=== PATIENT | male | born 1975 | race Caucasian/White ===

== ENCOUNTER 2016-08-04 09:48 | Emergency (ER) | payer MEDICAID ==
[~2016-08-04] VITALS: Ht 188 cm; Wt 122.9 kg
[~2016-08-04 09:48] MED LIST: AMLO5TAB PO; AMLODIPINE BES10 MG PO; ATENOLOL50 MG PO; BYETTA250 MCG/ML SC; CLONIDINE HCL0.1 M1 PO; CLONIDINE0.1 M1 PO; GABAPENTIN300 M1 PO; GEMFIBROZIL600 M1 PO; GLIPIZIDE 5MG TA5 MG PO; HYDROCODONE-APA1 TA1 PO; INDOCIN25 MG PO; LISINOPRIL20 MG PO; NORCO 325 MG-101 TAB PO; ONGLYZA5 MG PO; PERCOCET 5/3251 EACH PO; PHENERGAN25 M3 PO; ROBAXIN-750750 MG PO; TYLENOL W/CODEI1 TA2 PO
[2016-08-04] MEDS ORDERED: AMLO5TAB PO (10:06)
[2016-08-04] MEDS ORDERED: CATAPRES0.2 MG PO (10:06)
--- NOTE | 2016-08-04 10:13 | Emergency Room Report ---
History of Present Illness Time Seen by MD [place] Presenting Problem in Triage Pt arrived:Walked Presenting Problem:C/O PAIN IN L SIDED RIB PAIN THAT IS SHARP IN NATURE. PT STATES PAIN BEGAN LAST NIGHT AFTER SNEEZING. 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 N Clinical Suspician of Infection? N Mental Status: 1 - Regular (Normal Baseline) Sepsis Risk:Low Sepsis Risk Have you (or family members/close friends) recently traveled outside the [place]? N If Yes, where/when: Have you had exposure to infectious disease within the past month? N TB? Other? Specify: Positional left sided muscular pain after sneezing last night; no further sneezing; no congestion or cough; no SOB; pain with movement; no neurological sx. ALLERGIES Coded Allergies: No Known Allergies (11/23/15) Home Medications Reported Medications Glipizide (Glipizide 5MG) 5 MG PO DAILY Amlodipine Besylate (Amlodipine) 5 MG PO DAILY #30 CLONIDINE HYDROCHLORIDE (Catapres 0.2MG) 0.2 MG PO DAILY #30 Lisinopril 40 MG PO DAILY SAXAGLIPTIN HCL (Onglyza) 10 MG PO DAILY Gemfibrozil 600 MG PO TID History Medical History General CAD? No Angina: No SC: No Hypertension? Yes Hyperlipidemia? No CHF? No DVT? No PE? No COPD? No Asthma? Yes Anemia? No GERD? No Gastric ulcers? No GI Bleed? No Hernia? No Thyroid Problems? No Hypothyroidism? No CVA? No Seizures? No Diabetes? Yes Insulin Dependent: No Insulin Pump: No Home FSBS? Yes Renal Insuffiency? No End Stage Renal Disease? No UTI? No Stones? No BPH? No GB Disease: No Nephritic Syndrome? No Asplenia? No Hepatitis? No Sickle Cell Disease? No Arthritis? No Migraines? No Cataracts? No Glaucoma? No MRSA? No HIV? No TB? No Anxiety? No Depression? No Cancer? No More? Yes Additional hx: POLYCYSTIC KIDNEY DISEASE Immunization Hx DT/Tetanus > 10 Years Ago Surgical Hx Previous Surgery?Y L4/L5 DISCECTOMY CHIN APPY HERNIA REPAIR Cholecystectomy Social History Smoking Hx Smoker: Never Smoker Tobacco: No Alcohol Alcohol: No Review of Systems All Other Systems Reviewed and Negative Genitourinary denies: no symptoms reported. Musculoskeletal see HPI Physical Exam Vital Signs Vital Signs Date Time Temp Pulse Resp B/P Pulse O2 O2 Flow FiO2 Ox Delivery Rate 08/04 1106 72 20 157/108 98 08/04 1105 20 08/04 0952 97.9 84 18 157/110 95 General Appearance normal appearance, WD/WN, no apparent distress Eye Exam - bilateral eye normal exam, bilateral eye PERRL Neck normal inspection, non-tender, supple, full range of motion Respiratory Status Yes: trachea midline, chest symmetrical, tender on palpation. No: respiratory distress, non tender chest, use of accessory muscles, pain on inspiration, pain on expiration, productive cough, non productive cough (L pectoralis trigger point). Lung Sounds bilateral: normal breath sounds, lungs clear. Cardiovascular normal exam, regular rate/rhythm, no peripheral edema, no gallop, no JVD, no murmur, no rub, normal peripheral pulses Gastrointestinal normal bowel sounds, normal exam, non tender, firm, soft, no organomegaly, no pulsatile mass, no guarding, no rebound Back normal inspection, no CVA tenderness, no vertebral tenderness Extremities non-tender, normal range of motion, normal inspection, normal capillary refill, no calf tenderness Neurologic alert, normal exam, no motor/sensory deficits Skin intact, normal color, no rash cons.w/shingles Medical Decision Making LABS/Meds/Orders Pt receiving controlled substance in ED? Yes [place] was queried for this patient? Yes ([id number]) Risks/benefits of using a controlled substance for treatment were discussed w/pt by me Results/Orders Current Medication Orders Sig/Joe Start time Last Medication Dose Route Stop Time Status Admin Acetaminophen/ 1 TAB ONCE ONE 08/04 1100 DC 08/04 Hydrocodone Bitart PO 08/04 1101 1105 Ondansetron HCl 4 MG ONCE ONE 08/04 1100 DC 08/04 PO 08/04 1101 1104 Ondansetron HCl 0 .STK-MED ONE 08/04 1100 DC .ROUTE Acetaminophen/ 0 .STK-MED ONE 08/04 1058 DC Hydrocodone Bitart PO Orders Procedure Date/time Status [id number] VIEWS 08/04 1009 Active XRAY/CT/US XRAY/CT/US XRAY chest, rib XR interpretation by reviewed by me, discussed w/radiologist Xray Results normal/NAD, no fracture seen, no infiltrates, normal lung inflation levon (no PTX d/w Dr. Sousa) Departure Departure Time of Disposition 1104 Disposition DC Home or Self Care(routine) Clinical Impression Primary Impression: Muscle strain of chest wall Qualifiers: Encounter type: initial encounter Qualified Code: S29.011A - Strain of muscle and tendon of front wall of thorax, initial encounter Condition STABLE Referrals Alcides LOPEZ,Da Nixon Patient Instructions DI for Musculoskeletal Pain Additional Instructions See Manjula in two to three days for recheck, Rx Lortab and Zofran Discharge Counseling Counseled pt/family regarding diagnosis, test results, medications/RX, home care, follow up needs Prescriptions Current Visit Scripts Ondansetron (Zofran 4MG Odt) 4 MG PO Q6HP PRN NAUSEA AND VOMITING #6 ODT HYDROCODONE/ACETAMINOPHEN (Lortab 5-325 MG Tablet) 1 TAB PO Q6HP PRN pain #20 TAB ED Critical Care Critical Care No at 1108
[2016-08-04] MEDS ORDERED: ZOFRAN ODT4 MG PO (11:07)
[2016-08-04] MEDS ORDERED: LORTAB 5/3251 TAB PO (11:07)
--- NOTE | 2016-08-04 11:13 | RADIOLOGY REPORT PS360 ---
[id number] VIEWS HISTORY: Sneezing with pain in the left rib area PAIN IN L RIB AREA COMPARISON: None FINDINGS: A frontal view of the chest shows no acute finding. No evidence of pneumothorax. A 7 mm nodular opacity overlies the right lower lobe and may be related to nipple shadow or nodule. Multiple views of the Left ribs were obtained. No fracture or dislocation. No lytic or blastic change. IMPRESSION: Negative left RIBS. If pain persists, consider follow-up exam in 7-[address] with 3-D reformats. Right lower lobe nodule versus nipple shadow
[2016-08-04 11:15] VITALS: BP 157/108
== END 2016-08-04 11:15 | disposition home or self-care (01) ==
LOC: ER 09:48
DX: S29.011A Strain of muscle and tendon of front wall of thorax, initial encounter (principal); I10 Essential (primary) hypertension; E11.9 Type 2 diabetes mellitus without complications

== ENCOUNTER → 2016-10-30 | Outpatient (CLI) | payer MEDICAID ==
[~2016-10-30] MED LIST changes: +CATAPRES0.2 MG PO; +LORTAB 5/3251 TAB PO; +ZOFRAN ODT4 MG PO
[2016-10-30 16:52] LABS: BUN 28 mg/dL (7-18)
[2016-10-30 16:53] LABS: GFR (ESTIMATED) 29 ML/MIN (>60)
== END ==
LOC: LAB 14:06
PROVIDERS: Surgery
DX: R10.9 Unspecified abdominal pain (principal)

== ENCOUNTER 2017-03-24 17:03 | Emergency (ER) | payer MEDICAID ==
[~2017-03-24] VITALS: Ht 188 cm; Wt 112.9 kg
[~2017-03-24 17:03] MED LIST changes: +GABAPENTIN 600600 MG PO; +HUMALOG MIX 75/10 ML SC; +HUMALOG MIX75/253 ML; +METOPROLOL25 MG PO; +ZANTAC 150150 MG PO; +ZOCOR10 MG PO; +ZOFRAN4 MG PO
--- NOTE | 2017-03-24 17:33 | Urgent Treatment Center Report ---
History of Present Issue Date/Time Seen by Provider 03/24/17 1726 Visit Reason Pt arrived:Walked Presenting Problem:PT STATES HE WAS SEEN AT [facility] ON WEDNESDAY AND WAS DIAGNOSED WITH BRONCHITIS. STATES NO IMPROVEMENT SINCE THEN Location if Accident: Onset of symptoms date/time:/ or onset unknown for:MEDICAL HX UNKNOWN Have you (or family members/close friends) recently traveled outside the [place]? N If Yes, where/when: Have you had exposure to infectious disease within the past month? TB? Other? Specify: c/o sore throat. Initially started nearly one week ago but much worse today. Son w/ strep. Symptoms started 6 days ago w/ scratchy throat, mild cough, runny nose , aches, chills. Started OTC allergy medication. Symptoms worsened. Cough and SOA w/ intermittent wheezing. Was seen at clinic Wednesday, 2 days ago. Dx bronchitis. Started azithromycin, albuterol inhaler and tessalon perles. Chest symptoms no worse but woke up this morning w/ "terrible sore throat and slightly worse aches". Other than prescribed treatment from Wednesday and typical daily medications, hasn't taken or tried anything else for symptoms. Hx of HTN. and pt report 180's/120's as "typical". Currently taking clonidine and metoprolol. Denies any current attempts by PCP to get BP under better control. "It is too hard to get in there between their schedule and our work schedule". Denies chest pain, headache, vision changes. Source patient, family Exam Limitations no limitations ALLERGIES Coded Allergies: No Known Allergies (11/23/15) Home Medications Active Scripts ONDANSETRON HCL (Zofran 4MG Tab) 4 MG PO Q8HP PRN NAUSEA AND VOMITING #24 TAB Prov: 02/19/17 Reported Medications Metoprolol Tartrate (Metoprolol) 1 TAB PO DAILY Ranitidine Hcl (Zantac) 150 MG PO BID Gabapentin (Gabapentin 600MG) 600 MG PO TID Simvastatin (Zocor) 10 MG PO QHS INSULIN NPL/INSULIN LISPRO (Humalog Mix 75-25 Kwikpen) 8 UNIT BID CLONIDINE HYDROCHLORIDE (Catapres 0.2MG) 0.2 MG PO DAILY #30 INSULIN NPL/INSULIN LISPRO (Humalog Mix 75-25 Vial) 0 UNITS SC BID History Medical History General CAD? No Angina: No RI: No Hypertension? Yes Hyperlipidemia? No CHF? No DVT? No PE? No COPD? No Asthma? Yes Anemia? No GERD? No Gastric ulcers? No GI Bleed? No Hernia? Yes Thyroid Problems? No Hypothyroidism? No CVA? No Seizures? No Diabetes? Yes Insulin Dependent: No Insulin Pump: No Home FSBS? Yes Renal Insuffiency? No UTI? No Stones? No BPH? No GB Disease: No Nephritic Syndrome? No Asplenia? No Hepatitis? No Sickle Cell Disease? No Arthritis? No Migraines? No Cataracts? No Glaucoma? No MRSA? No HIV? No TB? No Anxiety? No Depression? No Cancer? No More? Yes Additional hx: POLYCYSTIC KIDNEY DISEASE HIATAL HERNIA Immunization HX DT/Tetanus > 10 Years Ago Surgical Hx Previous Surgery?Y L4/L5 DISCECTOMY CHIN APPY HERNIA REPAIR Cholecystectomy Social History Smoking Hx Smoker: Never Smoker Tobacco: No Alcohol Alcohol: No Review of Systems All Other Systems Reviewed and Negative Constitutional see HPI Eyes denies drainage ENT ear pain (mild, right, intermittent). denies: ear discharge, nose discharge, nose congestion, throat swelling. Respiratory see HPI Cardiovascular denies chest pain Gastrointestinal denies nausea, denies vomiting Musculoskeletal see HPI Skin denies rash Psychiatric/Neurological see HPI Physical Exam Vital Signs Vital Signs Date Time Temp Pulse Resp B/P Pulse O2 O2 Flow FiO2 Ox Delivery Rate 03/24 1717 98.4 76 20 188/126 98 General Appearance no apparent distress, obese Eye Exam - bilateral eye normal exam Ear, Nose, Throat normal ENT inspection (x/ pharyngeal erythema) Neck non-tender, supple Respiratory Status No: respiratory distress, productive cough, non productive cough. Lung Sounds anterior: lungs clear. posterior: lungs clear. bilateral: lungs clear. Cardiovascular regular rate/rhythm, no peripheral edema, no murmur Neurologic alert, oriented x 3 Mental status normal mood/affect Skin normal color, warm/dry Lymphatic no adenopathy Medical Decision Making LABS/Meds/Orders Pt receiving controlled substance in ED? No Results/Orders Laboratory Tests 03/24/17 1733: Group A Strep Screen NOT DETECTED Orders Procedure Date/time Status [facility] STREP SCREEN 03/24 1733 Complete Departure Departure Time of Disposition 1754 Disposition DC Home or Self Care(routine) Clinical Impression Primary Impression: Acute pharyngitis Qualifiers: Pharyngitis/tonsillitis etiology: unspecified etiology Qualified Code: J02.9 - Acute pharyngitis, unspecified Secondary Impressions: High blood pressure Qualifiers: Hypertension type: unspecified Qualified Code: I10 - Essential ( primary) hypertension Condition STABLE Referrals Libra Wolf APRN (Family) Call tomorrow and schedule a follow up for your uncontrolled high blood pressure. Follow up IMMEDIATELY for new or worsening symptoms OR no noticeable improvement over the next 48-72 hours. 911 for difficulty breathing or swallowing. Patient Instructions DI for Viral Pharyngitis Additional Instructions * Discussed the risks of continued elevated blood pressure even without symptoms. Aware to follow up with primary care to get BP under better control. * Continue azithromycin, albuterol and tessalon perles for bronchitis * No sign of bacterial infection today. Likely virus or drainage causing sore throat. * Monitor Temp. FU if fever develops * Encourage fluids, water, gatorade, powerade, pedialyte if infant/toddler/child * warm salt water gargles * warm fluids * sore throat lozenges but be sure to get sugar free * sleep elevated * humidifier/vaporizer * * Your throat swab was sent for culture. Those results are typically sent to your primary care. Be sure to follow up in 2-3 days if no improvement so they can review those results and treat if necessary. If you don't have primary care, I recommend you get one but in the mean time, you will have to return to a walk in clinic. Discharge Counseling Counseled pt/family regarding diagnosis, test results, medications/RX, home care, follow up needs at 1801
[2017-03-24 18:02] VITALS: BP 159/111
== END 2017-03-24 18:08 | disposition home or self-care (01) ==
LOC: UTC 17:03
DX: J02.9 Acute pharyngitis, unspecified (principal); I10 Essential (primary) hypertension; E11.9 Type 2 diabetes mellitus without complications

== ENCOUNTER → 2017-06-14 | Outpatient (CLI) | payer MEDICAID | LOC: LAB 14:43 | DX: R53.83 Other fatigue (principal) ==